=== PATIENT | male | born 1965 | race Caucasian/White ===

== ENCOUNTER 2020-04-19 20:04 | Emergency (ER) | payer OTHER, MEDICAID, SELFPAY ==
[2020-04-19] VITALS (13 sets, daily range): BP systolic 146–171; BP diastolic 92–122; PULSE 60–104; RESP 12–20; TEMP 36.4; O2SAT 94–99; BMI 26.6
--- NOTE | 2020-04-19 20:19 | DI.RAD.S_ITS ---
PROCEDURE: XR CHEST 1V INDICATIONS: chest pain TECHNIQUE: One view of the chest was acquired. COMPARISON: None. FINDINGS: Surgical changes and devices: None. Lungs and pleura: Lungs are clear. No pleural effusions or pneumothorax. Mediastinum: Mediastinal contours appear normal. Heart size is normal. Bones and chest wall: No suspicious bony lesions. Overlying soft tissues appear unremarkable. IMPRESSION: Reduced inspiratory volume, crowding of the bronchovascular markings, source of chest pain is not found. Dictated by: Lon Travis M.D. on 04/19/2020 at 21:16 Approved by: Lon Travis M.D. on 04/19/2020 at 21:16
[2020-04-19 20:34] LABS: Add Manual Diff / Slide Review NO; Basophils Absolute Auto 0 /uL (0-100); Basophils Percent Auto 0.6 % (0-2); Eosinophils Absolute Auto 100 /uL (0-450); Eosinophils Percent Auto 1.1 % (2-4); Hematocrit 45.7 % (41-53); Hemoglobin 15.4 g/dL (13.5-17.5); Lymphocytes Absolute Auto 2100 /uL (1100-4500); Lymphocytes Percent Auto 42.1 % (25-40); Mean Corpuscular HGB Conc 33.7 % (30-36); Mean Corpuscular Volume 91.9 fL (80-100); Monocytes Absolute Auto 600 /uL (0-900); Neutrophils Absolute Auto 2300 /uL (1500-7000); Neutrophils Percent Auto 45.2 % (50-75); Platelet Count 175 X10^3/uL (150-400); Prothrombin Time 11.1 SECONDS (10.1-12.7); Red Blood Cell Count 4.98 X10^6/uL (4.5-5.9); Red Cell Distribution Width 13.5 % (11.6-14.8)
[2020-04-19 20:36] LABS: PTT Partial Thromboplastin Tim 32 SECONDS (26.4-36.2)
--- NOTE | 2020-04-19 20:41 | ED_ITS ---
HPI - SOB/Dyspnea General Chief Complaint: Upper Respiratory Symptoms Stated Complaint: COUGHING UP BLOOD LIGHT HEADED Time Seen by Provider: 04/19/20 20:17 Source: patient and family Mode of arrival: Ambulatory Limitations: no limitations History of Present Illness HPI Narrative: Patient here with sukhdev. Complains 1 month of worsening exertional dyspnea and at times at rest. His usual amount of activity and e xertion now causes shortness of air especially with climbing stairs and gets chest tightness. Otherwise no chest discomfort at rest. Has had fever and chills as well. Subjective. Has had white productive cough. No prior heart or lung disease or problems. History asthma. Patient never smoked. No family history of coronary artery disease. Blood pressure noted. Has been at least 5 years since being on blood pressure medication. Does not have a primary care provider. Denies any hemoptysis or hematemesis. No history of long travel immobilization or surgery. No history of blood clots in legs or lungs. MD Complaint: shortness of breath and cough Review of Systems Review of Systems Narrative: GENERAL: Denies chills, fatigue, malaise, fever, sweats. HEENT: Denies sinus pain, ear pain, sore throat, difficulty swallowing RESPIRATORY: Complains of dyspnea, cough, denies denies any bloody cough CARDIOVASCULAR: Denies chest pain, palpitations, edema, GASTROINTESTINAL: Denies nausea, vomiting, abdominal pain, diarrhea, constipation, melena. : Denies dysuria, frequency, hematuria MUSCULOSKELETAL: denies muscle or bony pain SKIN: Denies rash, skin lesions NEUROLOGIC: Denies weakness, headache, numbness, change in speech, confusion PSYCHIATRIC: No SI or HI or hallucinations ROS Unobtainable: All systems reviewed & are unremarkable except as noted in HPI and below Patient History Social History Smoking Status: Never smoker Smoking Status: Never smoker alcohol intake frequency: 3 or more drinks per day Substance Use Type: does not use Exam Narrative Exam Narrative: GENERAL: patient appears stated age. Well-nourished, well- developed patient, in no distress, not toxic not dyspneic HEAD: Normocephalic. EYES: Pupils equal round and reactive. No scleral icterus. No injection no discharge ENT: Mucous membranes moist. No drooling no tongue elevation no trismus no malocclusion NECK: Trachea midline. Non tender CARDIOVASCULAR: Regular rate and rhythm without murmurs, gallops, or rubs. RESPIRATORY: Clear to auscultation. Breath sounds equal bilaterally. No wheezes, rales, or rhonchi. Speaking full sentences, shirt off. No retractions GASTROINTESTINAL: Abdomen soft, non-tender, nondistended. EXTREMITIES: No gross deformities. BACK: Nontender without deformity or crepitance. No flank tenderness. NEURO: AOx4. SKIN: Warm and dry PSYCH: Not anxious, is cooperative Initial Vital Signs Initial Vital Signs: Vital Signs Temperature 97.6 F 04/19/20 20:10 Pulse Rate 96 H 04/19/20 20:10 Respiratory Rate 18 04/19/20 20:10 Blood Pressure 169/122 H 04/19/20 20:10 Pulse Oximetry 96 04/19/20 20:10 Scores HEART Score Heart Score history: Slightly Suspicious Heart Score EKG: Normal Heart Score Age: 45-64 years old Heart Score risk factors: 1-2 risk factors Heart Score troponin: < or = to normal limit Heart Score Total: 2 Course Course Course Narrative: Patient dyspneic on walking around hallway on pulse ox, 96% but dyspneic in slight chest tightness Decision to Admit Date: 04/19/20 Decision to Admit time: 22:10 Orders Ordered: ED Orders 04/19/20 20:16 Complete Blood Count AUTO DIFF Stat Comprehensive Metabolic Panel Stat Ethanol (ETOH) Stat Lactate (Lactic Acid) Stat Lactate Dehydrogenase Stat Lipase Stat NT-proBNP (BNP-Adult 18+) Stat Partial Thromboplastin Time Stat Procalcitonin Stat Prothrombin Time INR Stat Troponin & CK Cardiac Panel Stat 04/19/20 20:19 XR chest 1V Stat EKG-12 Lead Stat 04/19/20 20:27 COVID19 -ED/INPAT/OR/L&D Stat 04/19/20 20:40 CT angio chest PE protocol Stat 04/19/20 22:55 Troponin I Stat Discontinued Medications Albuterol (Ventolin Hfa Prepack) 1 box MISC SEEINSTR ONE Stop: 04/19/20 21:26 Last Admin: 04/19/20 21:33 Dose: 1 box Documented by: KATIA Aspirin (Aspirin Chew) 324 mg PO NOW ONE Stop: 04/19/20 22:14 Last Admin: 04/19/20 22:31 Dose: 324 mg Documented by: RMARTIN Benzonatate (Tessalon Perles) 100 mg PO NOW ONE Stop: 04/19/20 21:37 Last Admin: 04/19/20 21:55 Dose: 100 mg Documented by: RMARTIN Sodium Chloride (Normal Saline 0.9%) 500 mls @ 1,000 mls/hr IV BOLUS ONE Stop: 04/19/20 21:09 Last Infusion: 04/19/20 21:42 Dose: 0 mls/hr Documented by: Admin: 04/19/20 20:48 Dose: 1,000 mls/hr Documented by: RMARTIN Lisinopril (Zestril) 5 mg PO NOW ONE Stop: 04/19/20 21:37 Last Admin: 04/19/20 21:54 Dose: 5 mg Documented by: RMARTIN Reevaluation(s) Reevaluation #1: Dyspnea with ambulation and slight chest tightness. Patient states that does not feel like his normal self. Patient desires admission/transfer for further evaluation and workup, he understands unable to do stress test here at this facility this weekend and will need to transfer to [facility] Time: 22:10 Consultations Consultation #1: Spoke with hospice [facility] Dr. Joseph, will accept. At this time no signs of alcohol withdrawal. Chest pain-free at this time. Time: 22:44 Vital Signs Vital signs: Vital Signs - 8 hr 04/19/20 21:17 04/19/20 21:19 04/19/20 21:38 Pulse Rate 92 H 60 Respiratory Rate 19 20 Blood Pressure 161/107 H Pulse Oximetry 97 95 04/19/20 22:10 04/19/20 22:11 04/19/20 22:33 Pulse Rate 104 H 97 H 101 H Respiratory Rate 12 12 13 Blood Pressure 162/105 H Pulse Oximetry 99 97 97 04/19/20 22:46 04/19/20 23:00 04/19/20 23:14 Pulse Rate 94 H 92 H 94 H Respiratory Rate 15 16 12 Blood Pressure 171/101 H 155/98 H 162/104 H Pulse Oximetry 96 95 95 04/19/20 23:30 04/19/20 23:31 04/19/20 23:50 Pulse Rate 89 92 H 98 H Respiratory Rate 18 17 14 Blood Pressure 151/92 H 146/107 H Pulse Oximetry 95 94 97 MDM - SOB/Dyspnea Differential Diagnosis Differential diagnosis: Likely congestive heart failure, community acquired pneumonia, asthma with exacerbation, pulmonary embolism and other (Atypical chest pain) Lab Data Attestation: I reviewed the patient's lab results. Result diagrams: 04/19/20 20:16 04/19/20 20:16 Labs: Lab Results 04/19/20 04/19/20 04/19/20 Range/Units 20:16 20:16 20:16 WBC 5.0 (4.5-11.0) X10^3/uL RBC 4.98 (4.5-5.9) X10^6/uL Hgb 15.4 (13.5-17.5) g/dL Hct 45.7 (41-53) % MCV 91.9 (80-100) fL MCH 31.0 (26-34) PG MCHC 33.7 (30-36) % RDW 13.5 (11.6-14.8) % Plt Count 175 (150-400) X10^3/uL Neut % (Auto) 45.2 L (50-75) % Lymph % (Auto) 42.1 H (25-40) % [place] % (Auto) 11.0 (3-14) % Eos % (Auto) 1.1 L (2-4) % Baso % (Auto) 0.6 (0-2) % Neut # (Auto) 2300 (8989-0528) /uL Lymph # (Auto) 2100 (3406-6921) /uL [place] # (Auto) 600 (0-900) /uL Eos # (Auto) 100 (0-450) /uL Baso # (Auto) 0 (0-100) /uL PT 11.1 (10.1-12.7) SECONDS INR 1.0 (0.9-1.3) APTT 32 (26.4-36.2) SECONDS Sodium 143 (137-145) mmol/L Potassium 4.1 (3.4-5.1) mmol/L Chloride 106 (98-107) mmol/L Carbon Dioxide 26 (22-32) mmol/L BUN 16 (9-20) mg/dL Creatinine 0.71 (0.66-1.25) mg/dL Estimated GFR > 60.0 (>60) mL/min BUN/Creatinine Ratio 22.5 H (6-22) Glucose 109 H (70-100) mg/dL Lactate (0.7-2.1) mmol/L Calcium 8.8 (8.4-10.2) mg/dL Total Bilirubin 1.7 H (0.2-1.3) mg/dL AST 63 H (17-59) IU/L ALT 26 (<50) IU/L Alkaline Phosphatase 116 (38-126) U/L Lactate Dehydrogenase 359 (313-618) U/L Total Creatine Kinase 196 H (55-170) U/L CK-MB (CK-2) 0.78 (<2.37) ng/mL CK-MB (CK-2) Rel Index 0.4 L (1.5-5.0) % Troponin I < 0.012 (0.01-0.034) ng/mL NT-Pro-B Natriuret Pep (<125) pg/mL Total Protein 8.3 H (6.3-8.2) g/dL Albumin 4.7 (3.5-5.0) g/dL Globulin 3.6 (1.7-4.1) g/dL Albumin/Globulin Ratio 1.3 (1.0-2.8) Lipase 173 (23-300) U/L Procalcitonin (<0.5) ng/mL Ethyl Alcohol 378 H ( - 10) mg/dL COVID-19 PCR (Negative) 04/19/20 04/19/20 04/19/20 Range/Units 20:16 20:16 20:16 WBC (4.5-11.0) X10^3/uL RBC (4.5-5.9) X10^6/uL Hgb (13.5-17.5) g/dL Hct (41-53) % MCV (80-100) fL MCH (26-34) PG MCHC (30-36) % RDW (11.6-14.8) % Plt Count (150-400) X10^3/uL Neut % (Auto) (50-75) % Lymph % (Auto) (25-40) % [place] % (Auto) (3-14) % Eos % (Auto) (2-4) % Baso % (Auto) (0-2) % Neut # (Auto) (9788-8573) /uL Lymph # (Auto) (1811-8715) /uL [place] # (Auto) (0-900) /uL Eos # (Auto) (0-450) /uL Baso # (Auto) (0-100) /uL PT (10.1-12.7) SECONDS INR (0.9-1.3) APTT (26.4-36.2) SECONDS Sodium (137-145) mmol/L Potassium (3.4-5.1) mmol/L Chloride (98-107) mmol/L Carbon Dioxide (22-32) mmol/L BUN (9-20) mg/dL Creatinine (0.66-1.25) mg/dL Estimated GFR (>60) mL/min BUN/Creatinine Ratio (6-22) Glucose (70-100) mg/dL Lactate 1.2 (0.7-2.1) mmol/L Calcium (8.4-10.2) mg/dL Total Bilirubin (0.2-1.3) mg/dL AST (17-59) IU/L ALT (<50) IU/L Alkaline Phosphatase (38-126) U/L Lactate Dehydrogenase (313-618) U/L Total Creatine Kinase (55-170) U/L CK-MB (CK-2) (<2.37) ng/mL CK-MB (CK-2) Rel Index (1.5-5.0) % Troponin I (0.01-0.034) ng/mL NT-Pro-B Natriuret Pep 30 (<125) pg/mL Total Protein (6.3-8.2) g/dL Albumin (3.5-5.0) g/dL Globulin (1.7-4.1) g/dL Albumin/Globulin Ratio (1.0-2.8) Lipase (23-300) U/L Procalcitonin < 0.05 (<0.5) ng/mL Ethyl Alcohol ( - 10) mg/dL COVID-19 PCR (Negative) 04/19/20 04/19/20 Range/Units 20:27 22:55 WBC (4.5-11.0) X10^3/uL RBC (4.5-5.9) X10^6/uL Hgb (13.5-17.5) g/dL Hct (41-53) % MCV (80-100) fL MCH (26-34) PG MCHC (30-36) % RDW (11.6-14.8) % Plt Count (150-400) X10^3/uL Neut % (Auto) (50-75) % Lymph % (Auto) (25-40) % [place] % (Auto) (3-14) % Eos % (Auto) (2-4) % Baso % (Auto) (0-2) % Neut # (Auto) (7057-1142) /uL Lymph # (Auto) (6491-0286) /uL [place] # (Auto) (0-900) /uL Eos # (Auto) (0-450) /uL Baso # (Auto) (0-100) /uL PT (10.1-12.7) SECONDS INR (0.9-1.3) APTT (26.4-36.2) SECONDS Sodium (137-145) mmol/L Potassium (3.4-5.1) mmol/L Chloride (98-107) mmol/L Carbon Dioxide (22-32) mmol/L BUN (9-20) mg/dL Creatinine (0.66-1.25) mg/dL Estimated GFR (>60) mL/min BUN/Creatinine Ratio (6-22) Glucose (70-100) mg/dL Lactate (0.7-2.1) mmol/L Calcium (8.4-10.2) mg/dL Total Bilirubin (0.2-1.3) mg/dL AST (17-59) IU/L ALT (<50) IU/L Alkaline Phosphatase (38-126) U/L Lactate Dehydrogenase (313-618) U/L Total Creatine Kinase (55-170) U/L CK-MB (CK-2) (<2.37) ng/mL CK-MB (CK-2) Rel Index (1.5-5.0) % Troponin I < 0.012 (0.01-0.034) ng/mL NT-Pro-B Natriuret Pep (<125) pg/mL Total Protein (6.3-8.2) g/dL Albumin (3.5-5.0) g/dL Globulin (1.7-4.1) g/dL Albumin/Globulin Ratio (1.0-2.8) Lipase (23-300) U/L Procalcitonin (<0.5) ng/mL Ethyl Alcohol ( - 10) mg/dL COVID-19 PCR Negative (Negative) Urine Dip Bedside Urine Glucose Negative Bedside Urine Bilirubin - Negative Bedside Urine Ketone - Negative Urine Specific [place] 1.005 Bedside Urine Occult Blood - Negative Bedside Urine pH 6.0 Bedside Urine Protein - Negative Bedside Urine Urobilinogen - Negative Bedside Urine Nitrite - Negative Bedside Urine Leukocytes - Negative Esterase Imaging Data Chest x-ray: Radiologist's Impression: [address] [address] XRay Report Signed Patient: Darren Sanchez R#: [id number] : 1965Acct:[id number] Age/Sex: 54 / MDate of Service: 04/19/20 Loc: ED Accession Number: [id number] Procedure: XR chest 1V Ordering Provider: Augie Champagne MD PROCEDURE: XR CHEST 1V INDICATIONS: chest pain TECHNIQUE: One view of the chest was acquired. COMPARISON: None. FINDINGS: Surgical changes and devices: None. Lungs and pleura: Lungs are clear. No pleural effusions or pneumothorax. Mediastinum: Mediastinal contours appear normal. Heart size is normal. Bones and chest wall: No suspicious bony lesions. Overlying soft tissues appear unremarkable. IMPRESSION: Reduced inspiratory volume, crowding of the bronchovascular markings, source of chest pain is not found. Dictated by: Lon Travis M.D. on 04/19/2020 at 21:16 Approved by: Lon Travis M.D. on 04/19/2020 at 21:16 CT scan - chest: Radiologist's Impression: [address] [address] [address] Scan Report Signed Patient: Darren Sanchez R#: [id number] : 1965Acct:[id number] Age/Sex: 54 / MDate of Service: 04/19/20 Loc: ED Accession Number: [id number] Procedure: CT angio chest PE protocol Ordering Provider: Augie Champagne MD PROCEDURE: CT ANGIO CHEST PE PROTOCOL INDICATIONS: Chest pain/dyspnea TECHNIQUE: After the administration of intravenous contrast, 2 mm thick sections acquired from the pulmonary apices to the posterior costophrenic angles. 3-dimensional maximum intensity projection (MIP) coronal and sagittal reformats were then acquired through the thorax. For radiation dose reduction, the following was used: automated exposure con trol, adjustment of mA and/or kV according to patient size. COMPARISON: None. FINDINGS: Image quality: Excellent. Pulmonary arteries: Pulmonary arteries are normal in size, and demonstrate no intraluminal filling defects to suggest central pulmonary embolism. Lungs and pleura: Lungs are clear except for a mild interstitial prominence likely chronic. No pleural effusions or pneumothorax. Central and peripheral airways are patent. Mediastinum: Heart size is normal, without pericardial effusion. No mediastinal or hilar adenopathy. Thoracic aorta is normal in caliber and enhancement. Esophagus is normal in caliber, without hiatal hernia. Bones and chest wall: No suspicious bony lesions. Ribs and thoracic spine appear intact throughout. Thyroid gland appears normal where well visualized . No axillary or supraclavicular adenopathy. Abdomen: Visualized upper abdominal solid organs appear normal in the early arterial phase of enhancement. IMPRESSION: Mild interstitial prominence, no patchy alveolitis is found suggestive of atypical pneumonia. No pulmonary embolus is seen. Dictated by: Lon Travis M.D. on 04/19/2020 at 21:26 Approved by: Lon Travis M.D. on 04/19/2020 at 21:28 ECG Data Attestation: I personally reviewed and interpreted this ECG as follows: Interpretation: Normal sinus rhythm, rate 88, no ST elevation or depression MDM Narrative Medical decision making narrative: Patient symptomatic after breathing treatment. Ambulate in the hallway feeling dyspneic and after resting feels a little bit of chest tightness. Unable to do stress test over the weekend at this facility. Patient understands need for transfer to [facility]. R adiographs not conclusive for respiratory infection. White count normal. Discharge Plan Departure Patient Disposition: [facility] Clinical Impression: Atypical chest pain Discharge Date/Time: 04/20/20 00:10 Referrals: Miscellaneous,DoctorMD [Primary Care Provider] -
[2020-04-19 20:47] LABS: Alanine Aminotransferase 26 IU/L (<50); Albumin 4.7 g/dL (3.5-5.0); Albumin Globulin Ratio 1.3 (1.0-2.8); Alkaline Phosphatase 116 U/L (38-126); Aspartate Aminotransferase 63 IU/L (17-59); BUN Creatinine Ratio 22.5 (6-22); Bilirubin Total 1.7 mg/dL (0.2-1.3); Blood Urea Nitrogen 16 mg/dL (9-20); Calcium 8.8 mg/dL (8.4-10.2); Carbon Dioxide 26 mmol/L (22-32); Chloride 106 mmol/L (98-107); Creatine Kinase 196 U/L (55-170); Estimated Glomerular Filt Rate > 60.0 mL/min (>60); Globulin 3.6 g/dL (1.7-4.1); Glucose 109 mg/dL (70-100); HEMOLYSIS < 15 (0-50); Lipase 173 U/L (23-300); Potassium 4.1 mmol/L (3.4-5.1); Sodium 143 mmol/L (137-145); Total Protein 8.3 g/dL (6.3-8.2)
[2020-04-19] MEDS: SODIUM CHLORIDE 0.9% 500 ML 1000 ML IV (20:48)
[2020-04-19 20:49] LABS: COVID19 -Nasal RAPID Negative (Negative)
[2020-04-19 20:59] LABS: Troponin I < 0.012 ng/mL (0.01-0.034)
[2020-04-19 21:00] LABS: Procalcitonin < 0.05 ng/mL (<0.5)
[2020-04-19 21:02] LABS: CKMB % Relative Index 0.4 % (1.5-5.0); Creatine Kinase MB 0.78 ng/mL (<2.37)
[2020-04-19 21:04] LABS: Lactate Dehydrogenase 359 U/L (313-618)
[2020-04-19 21:13] LABS: Lactate (Lactic Acid) 1.2 mmol/L (0.7-2.1)
[2020-04-19 21:15] LABS: Ethanol (ETOH) 378 mg/dL
[2020-04-19 21:29] LABS: NT-proBNP (BNP-Adult 18+) 30 pg/mL (<125)
[2020-04-19] MEDS: ALBUTEROL HFA PREPACK 1 BOX MISC (21:33)
[2020-04-19] MEDS: lisinopriL 5 MG TABLET PO (21:54)
[2020-04-19] MEDS: BENZONATATE 100 MG CAPSULE PO (21:55)
--- NOTE | 2020-04-19 22:05 | PC.NURSE ---
Ambulated patient with pulse ox per Dr Champagne's order. Patient tolerated well- completed 3 laps around department maintained O2 saturation above 94%.
[2020-04-19] MEDS: ASPIRIN 81 MG CHEW TAB 324 MG PO (22:31)
[2020-04-19 23:25] LABS: Troponin I < 0.012 ng/mL (0.01-0.034)
== END 2020-04-20 00:10 | disposition short-term general hospital (02) ==
PROVIDERS: Emergency Provider Emergency Medicine
DX: R07.89 Other chest pain (principal); R05 Cough; R06.02 Shortness of breath
CPT/HCPCS: 36415; 71045; 71275; 80053; 80320; 81003; 82550; 82553; 83605; 83615; 83690; 83880; 84145; 84484; 85025; 85610; 85730; 87635; 93005; 93010; 94640; 96360; 99284; 99285; Q9967

== ENCOUNTER 2020-04-27 21:10 | Emergency (ER) | payer OTHER, MEDICAID, SELFPAY ==
--- NOTE | 2020-04-27 21:22 | DI.US.S_ITS ---
PROCEDURE: US SCROTUM INDICATIONS: Right-sided testicular pain eval for torsion TECHNIQUE: Real-time scanning was performed of the scrotum and testicles, with image documentation. Color and pulse Doppler interrogation was performed of both testicles. COMPARISON: None. FINDINGS: Right: The right testicle is normal in appearance measuring 2.0 x 2.8 x 4.1 cm. There is no testicular mass. Normal blood flow. The right epididymis is enlarged and hypervascular. No hydrocele or varicocele. Left: Normal size and appearance of the left testicle measuring 1.8 x 2.6 x 4.0 cm. Normal size and appearance of the left epididymis. Normal Doppler signal in the left testicle and epididymis. Doppler: Color and pulse Doppler demonstrate normal and symmetric arterial flow in both testicles. IMPRESSION: Right-sided epididymitis. Dictated by: Rob Mena M.D. on 04/28/2020 at 7:59 Approved by: Rob Mena M.D. on 04/28/2020 at 8:00
[2020-04-27 21:24] VITALS: BP 139/89; PULSE 88; RESP 20; TEMP 36.4; O2SAT 97; BMI 27.4
--- NOTE | 2020-04-27 21:59 | PC.NURSE ---
Sudden onset at about 1600 while sitting on couch. Denies any recent trauma or heavy lifting.
--- NOTE | 2020-04-27 23:15 | ED.GENADULT ---
HPI - General Adult General Chief complaint: Urogenital-Male Stated complaint: right nut is out of control Time Seen by Provider: 04/27/20 21:11 Source: patient Mode of arrival: Ambulatory Limitations: no limitations History of Present Illness HPI narrative: 54-year-old male here for evaluation of right-sided testicular pain. He states that occurred earlier this evening. He thought that it was a fairly sudden onset. He was just sitting down at the time. No trauma. Him than vomiting. No urinary symptoms. Has not tried anything for symptoms prior to arrival. I am Related Data Allergies Allergy/AdvReac Type Severity Reaction Status Date / Time No Known Drug Allergies Allergy Verified 04/27/20 21:24 Review of Systems Constitutional Constitutional: Denies fever(s) Cardiovascular Cardiovascular: Denies chest pain and Denies dyspnea Respiratory Respiratory: Denies dyspnea Gastrointestinal Gastrointestinal: Denies abdominal pain, Denies nausea and Denies vomiting Genitourinary Genitourinary: Denies dysuria and Reports testicular pain Genitourinary: Denies dysuria Integumentary/Breasts Skin/Breast: Denies lesions and Denies rash Neurologic Neurologic: Denies behavioral changes Psychiatric Psychiatric: Denies behavioral changes Hematologic/Lymphatic Hematologic/Lymphatic: Denies easy bleeding and Denies easy bruising Allergic/Immunologic Allergic/Immunologic: Denies urticaria Patient History Medical History Atypical chest pain (Inactive) Social History Smoking Status: Never smoker Smoking Status: Never smoker alcohol intake frequency: 3 or more drinks per day Substance Use Type: does not use Exam Initial Vital Signs Initial Vital Signs: Vital Signs Temperature 97.6 F 04/27/20 21:24 Pulse Rate 88 04/27/20 21:24 Respiratory Rate 20 04/27/20 21:24 Blood Pressure 139/89 04/27/20 21:24 Pulse Oximetry 97 04/27/20 21:24 Const General: cooperative and comfortable Limitations: mental status not altered HENMT Head: normal to inspection and normocephalic Resp Effort & Inspection: normal respiratory effort Cardio Rate: regular rate GI Inspection: non-distended Palpation: soft, No firm and No tender External: circumcised Penis: normal penis Scrotum: scrotum normal Testes: epididymal tenderness on the right, no masses and testicular tenderness on the right Skin Lesions: no lesions Rashes: no rashes Extrem General: normal to inspection and capillary refill normal Psych Appearance: grossly normal and well kempt Course Orders Ordered: ED Orders 04/27/20 21:22 US scrotum Stat Discontinued Medications Ibuprofen (Advil) 800 mg PO NOW ONE Stop: 04/27/20 23:16 Last Admin: 04/27/20 23:19 Dose: 800 mg Documented by: JAMES Vital Signs Vital signs: Vital Signs - 8 hr 04/27/20 21:24 04/27/20 23:21 Temperature 97.6 F Pulse Rate 88 95 H Respiratory Rate 20 15 Blood Pressure 139/89 135/91 H Pulse Oximetry 97 99 Medical Decision Making Lab Data Lab results reviewed: Yes I reviewed the patient's lab results. Labs: Urine Dip Bedside Urine Glucose Negative Bedside Urine Bilirubin - Negative Bedside Urine Ketone - Negative Urine Specific [place] 1.010 Bedside Urine Occult Blood - Negative Bedside Urine pH 5.5 Bedside Urine Protein - Negative Bedside Urine Urobilinogen - Negative Bedside Urine Nitrite - Negative Bedside Urine Leukocytes - Negative Esterase Point of care testing: Urine Dip Bedside Urine Glucose Negative Bedside Urine Bilirubin - Negative Bedside Urine Ketone - Negative Urine Specific [place] 1.010 Bedside Urine Occult Blood - Negative Bedside Urine pH 5.5 Bedside Urine Protein - Negative Bedside Urine Urobilinogen - Negative Bedside Urine Nitrite - Negative Bedside Urine Leukocytes - Negative Esterase Imaging Data Scrotal ultrasound: Radiologist's Impression: Right epididymitis, normal appearing testicles with intrinsic blood flow. MDM Narrative Medical decision making narrative: Physical exam and ultrasound consistent with epididymitis. No fevers. No urinary symptoms. Patient not concern for STIs. No indication for antibiotics. We did discuss conservative treatment. He expressed understanding and agreement. Discharge Plan Departure Patient Disposition: Home Clinical Impression: Epididymitis Discharge Date/Time: 04/27/20 23:22 Instructions: DI for Epididymitis Activity Restrictions/Additional Instructions: Recommend you wear supportive closing. He can also use ice over the area. Can also take anti-inflammatories such as Motrin or Naprosyn. Contact your primary provider for follow-up. Return to the emergency department for any new or worsening symptoms Referrals: Doctor Ho MD [Primary Care Provider] -
[2020-04-27] MEDS: IBUPROFEN 400 MG TABLET 800 MG PO (23:19)
[2020-04-27 23:21] VITALS: BP 135/91; PULSE 95; RESP 15; O2SAT 99
== END 2020-04-27 23:22 | disposition home or self-care (01) ==
PROVIDERS: Emergency Provider Emergency Medicine
DX: N45.1 Epididymitis (principal)
CPT/HCPCS: 76870; 81003; 99283